=== PATIENT | male | born 1955 | race Caucasian/White ===

== ENCOUNTER 2018-06-01 18:06 | Emergency (ER) | payer MEDICARE ==
[2018-06-01] MEDS ORDERED: KETOROLAC TROMETHAMINE 30MG/ML ONE (19:04)
== END 2018-06-01 19:17 | disposition home or self-care (01) ==
LOC: EDH 18:06
DX: M23.8X1 Other internal derangements of right knee (principal); E07.9 Disorder of thyroid, unspecified; E78.5 Hyperlipidemia, unspecified; I10 Essential (primary) hypertension; Z87.891 Personal history of nicotine dependence
CPT/HCPCS: 73562; 96372; 99284; J1885

== ENCOUNTER → 2018-06-28 | Outpatient (CLI) | payer OTHER | END | disposition home or self-care (01) | LOC: RAH 13:08 | PROVIDERS: ATTEND Internal Medicine | DX: S83.91XA Sprain of unspecified site of right knee, initial encounter (principal); M17.11 Unilateral primary osteoarthritis, right knee; M71.21 Synovial cyst of popliteal space [Baker], right knee; M94.28 Chondromalacia, other site; X58.XXXA Exposure to other specified factors, initial encounter; Y93.89 Activity, other specified; Y92.89 Other specified places as the place of occurrence of the external cause; Y99.8 Other external cause status | CPT/HCPCS: 73721 ==

== ENCOUNTER 2018-09-02 07:54 | Day surgery (SDC) | payer OTHER ==
[2018-08-30 16:48] VITALS: BP 137/69
[2018-08-30 16:53] LABS: APPEARANCE,URINE Clear (CLEAR); BILIRUBIN,URINE Negative (NEGATIVE); COLOR,URINE Yellow (YELLOW); GLUCOSE, URINE (UA) Negative (NEGATIVE); KETONES,URINE Negative (NEGATIVE); LEUKOCYTE ESTERASE ,URINE Moderate (NEGATIVE); NITRATE,URINE Negative (NEGATIVE); OCCULT BLOOD,URINE Large (NEGATIVE); PROTEIN,URINE Trace (NEGATIVE)
[2018-08-30 17:09] LABS: POTASSIUM 4.2 mmol/L (3.5-5.1)
[2018-08-30 17:13] LABS: CREATININE 1.2 mg/dL (0.5-1.5)
[2018-08-30 17:45] LABS: RBC,URINE 51-100 /HPF (0-1)
[2018-08-30 17:46] LABS: BACTERIA,URINE Few /HPF (None Seen); SQUAMOUS EPITHELIAL CELL,UR Rare /HPF (0-2)
--- NOTE | 2018-09-01 11:48 | NUR ---
ABNORMAL LABS/ CLARIFICATION ORDER REPORTED AND FAXED ABNORMAL UA TO DR. SUTTON'S OFFICE. DR. HERMAN RIVERA'S NURSE CALLED BACK, NO FURTHER ORDERS GIVEN BY DR. SUTTON. ALSO CLARIFIED DIAGNOSIS; LEFT RENAL STONE.
[2018-09-02] VITALS (21 sets, daily range): BP systolic 120–141; BP diastolic 58–92
[~2018-09-02] VITALS: Ht 182.9 cm; Wt 114.3 kg
[~2018-09-02 07:54] MED LIST: ASPI-555 PO; CALC-866 PO; LEVO137T2 PO; LISI1TAB13 PO; NAPR220C16 PO; PRAV40TA3 PO; TAMS0.4C32 PO; TRAM50TA4 PO
[2018-09-02] MEDS: CEFTRIAXONE SODIUM 1 GM IVP ONE ×2 (08:00→09:45)
[2018-09-02] MEDS ORDERED: LACTATED RINGERS 1000ML 1,000 ML IV ONE (08:29)
[2018-09-02] MEDS ORDERED: IOHEXOL-350 50ML VIAL IV ONE (09:02)
[2018-09-02] MEDS ORDERED: PROPOFOL 10 MG/ML 20ML VIAL IV ONE (09:42)
[2018-09-02] MEDS ORDERED: LIDOCAINE PF 2% 5ML ABBOJECT ONE (09:42)
[2018-09-02] MEDS ORDERED: FENTANYL CITRATE PF 50 MCG/1 ML 2ML VIAL ONE (09:42)
[2018-09-02] MEDS ORDERED: KETOROLAC TROMETHAMINE 30MG/ML ONE (11:59)
== END 2018-09-02 13:10 | disposition home or self-care (01) ==
LOC: DAH 07:54
PROVIDERS: ATTEND Urology
DX: N20.1 Calculus of ureter (principal); E78.5 Hyperlipidemia, unspecified; I10 Essential (primary) hypertension; Z98.890 Other specified postprocedural states; Z79.899 Other long term (current) drug therapy; F41.9 Anxiety disorder, unspecified; R06.02 Shortness of breath; M19.90 Unspecified osteoarthritis, unspecified site; E03.9 Hypothyroidism, unspecified
CPT/HCPCS: 36415; 52356; 76000; 80048; 81001; 87088; 88300; A4218; A4354; A4358; A4600; A4649; C1758; C1769; C2617; J0696; J1885; J2001; J2704; J3010; J7120 ×2; Q9967

== ENCOUNTER 2018-09-08 08:54 | Emergency (ER) | payer OTHER ==
[2018-09-08 09:21] LABS: BASOPHILS % (AUTO) 0.8 % (0.0-5.0); EOSINOPHILS % (AUTO) 5.8 % (0.0-8.0); HEMATOCRIT 41.5 % (42-54); MEAN CORPUSCULAR HEMOGLOBIN 30.3 pg (27.0-33.0); MEAN CORPUSCULAR HGB CONC 34.1 g/dL (32.0-36.0); MEAN CORPUSCULAR VOLUME 88.9 fL (79-99); MONOCYTES % (AUTO) 10.3 % (3.0-13.0); NEUTROPHILS % (AUTO) 58.1 % (40.0-77.0); PLATELET COUNT (AUTO) 194 K/uL (130-400); RED BLOOD CELL COUNT(AUTO) 4.67 MIL/uL (4.50-6.20); RED CELL DISTRIBUTION WIDTH 13.4 % (11.0-15.5); WHITE BLOOD COUNT (AUTO) 6.1 K/uL (4.8-10.8)
[2018-09-08 09:25] LABS: CREATININE 1.4 mg/dL (0.5-1.5); POTASSIUM 4.1 mmol/L (3.5-5.1)
[2018-09-08] MEDS ORDERED: KETOROLAC TROMETHAMINE 30MG/ML ONE (09:28)
[2018-09-08 10:07] LABS: APPEARANCE,URINE Clear (CLEAR); BILIRUBIN,URINE Negative (NEGATIVE); COLOR,URINE Yellow (YELLOW); GLUCOSE, URINE (UA) Negative (NEGATIVE); KETONES,URINE Negative (NEGATIVE); LEUKOCYTE ESTERASE ,URINE Small (NEGATIVE); NITRATE,URINE Negative (NEGATIVE); OCCULT BLOOD,URINE Moderate (NEGATIVE); PH,URINE 5.5 (5.0-8.0); PROTEIN,URINE Negative (NEGATIVE); UROBILINOGEN,URINE 0.2 mg/dL (0.2-1.0)
[2018-09-08 10:21] LABS: BACTERIA,URINE Rare /HPF (None Seen); SQUAMOUS EPITHELIAL CELL,UR Rare /HPF (0-2)
== END 2018-09-08 10:46 | disposition home or self-care (01) ==
LOC: EDH 08:54
DX: R10.9 Unspecified abdominal pain (principal); R11.2 Nausea with vomiting, unspecified; E78.5 Hyperlipidemia, unspecified; I10 Essential (primary) hypertension; E07.9 Disorder of thyroid, unspecified; Z87.442 Personal history of urinary calculi; Z87.891 Personal history of nicotine dependence
CPT/HCPCS: 36415; 74176; 80048; 81001; 85025; 96374; 99284; J1885

== ENCOUNTER 2022-11-19 14:47 | Emergency (ER) | payer OTHER ==
[~2022-11-19] VITALS: Ht 182.9 cm; Wt 113.4 kg
[~2022-11-19 14:47] MED LIST changes: -ASPI-555 PO; +ASPI-556 PO; -LISI1TAB13 PO; +LISI1TAB53 PO; -NAPR220C16 PO; +NAPR220C62 PO
[2022-11-19 15:45] LABS: HEMATOCRIT 39.7 % (42-54); LYMPHOCYTES % (AUTO) 32.5 % (21.0-51.0); MEAN CORPUSCULAR HEMOGLOBIN 30.2 pg (27.0-33.0); MEAN CORPUSCULAR HGB CONC 34.3 g/dL (32.0-36.0); MONOCYTES % (AUTO) 10.5 % (3.0-13.0); NEUTROPHILS % (AUTO) 50.8 % (40.0-77.0); PLATELET COUNT (AUTO) 170 K/uL (130-400); RED BLOOD CELL COUNT(AUTO) 4.51 MIL/uL (4.50-6.20); RED CELL DISTRIBUTION WIDTH 13.2 % (11.0-15.5); WHITE BLOOD COUNT (AUTO) 4.2 K/uL (4.8-10.8)
[2022-11-19 15:50] LABS: APPEARANCE,URINE CLEAR (CLEAR); BILIRUBIN,URINE NEGATIVE (NEGATIVE); COLOR,URINE YELLOW (YELLOW); GLUCOSE, URINE (UA) NEGATIVE (NEGATIVE); KETONES,URINE NEGATIVE (NEGATIVE); LEUKOCYTE ESTERASE ,URINE NEGATIVE Leu/uL (NEGATIVE); NITRATE,URINE NEGATIVE (NEGATIVE); OCCULT BLOOD,URINE NEGATIVE (NEGATIVE); PH,URINE 5.5 (5.0-8.0); PROTEIN,URINE NEGATIVE (NEGATIVE); UROBILINOGEN,URINE 0.2 mg/dL (0.2-1.0)
[2022-11-19 16:06] LABS: RBC,URINE 0-1 /HPF (0-1); SQUAMOUS EPITHELIAL CELL,UR RARE /HPF (0-2); WBC,URINE 0-1 /HPF (0-1)
[2022-11-19 16:14] LABS: ALBUMIN 3.9 g/dL (3.5-5.0); CREATININE 1.7 mg/dL (0.5-1.5); TOTAL PROTEIN, SERUM 7.1 g/dL (6.0-8.3)
[2022-11-19] MEDS ORDERED: 0.9%NACL 1000ML 1,000 ML IV ONE (16:30)
[2022-11-19] MEDS ORDERED: MECLIZINE HCL 25 MG TABLET PO ONE (16:30)
[2022-11-19 18:13] VITALS: BP 124/79
[2022-11-19] MEDS ORDERED: MECL-226 PO (18:14)
== END 2022-11-19 18:26 | disposition home or self-care (01) ==
LOC: EDH 14:47
DX: R42 Dizziness and giddiness (principal); R11.0 Nausea; I10 Essential (primary) hypertension; E78.00 Pure hypercholesterolemia, unspecified; E03.9 Hypothyroidism, unspecified; Z79.82 Long term (current) use of aspirin; Z79.899 Other long term (current) drug therapy; Z98.890 Other specified postprocedural states
CPT/HCPCS: 36415; 70450; 71045; 80053; 81001; 84484; 85025; 93005; 96360